=== PATIENT | female | born 2000 | race African-American/Black ===

== ENCOUNTER 2021-08-31 01:40 | Emergency (ER) | payer MEDICAID ==
[~2021-08-31] VITALS: Ht 160 cm; Wt 68.3 kg
[2021-08-31 01:54] VITALS: BP 106/69
[2021-08-31] MEDS ORDERED: IBUPROFEN 600MG TABLET PO ONE (03:30)
== END 2021-08-31 04:47 | disposition home or self-care (01) ==
LOC: ER 01:40
DX: S50.01XA Contusion of right elbow, initial encounter (principal); W22.8XXA Striking against or struck by other objects, initial encounter; Y93.89 Activity, other specified; Y92.013 Bedroom of single-family (private) house as the place of occurrence of the external cause
CPT/HCPCS: 73080; 81025; 99283

== ENCOUNTER 2022-08-10 21:18 | Emergency (ER) | payer MEDICAID ==
[~2022-08-10] VITALS: Ht 160 cm; Wt 66.0 kg
[2022-08-10 23:54] LABS: HEMATOCRIT. 35.5 % (36.0-48.0); HEMOGLOBIN. 11.4 g/dL (12.0-16.0); MEAN CORPUSCULAR VOLUME 87.2 fL (81.0-99.0); MEAN PLATELET VOLUME 7.9 fl (7.4-10.4); PLATELET 376 x1000/uL (130-400); RED BLOOD CELL COUNT 4.08 mill/uL (4.2-5.4); RED CELL DISTRIBUTION WIDTH 14.9 % (11.6-14.6)
[2022-08-11 00:02] LABS: CHLORIDE 105 mEq/L (98-107)
[2022-08-11 01:32] LABS: T4 FREE 1.05 ng/dL (0.76-1.46)
[2022-08-11 02:04] VITALS: BP 118/67
[2022-08-11 05:13] LABS: PLATELET ESTIMATE NORMAL
== END 2022-08-11 02:06 | disposition home or self-care (01) ==
LOC: ER 21:18
DX: R00.2 Palpitations (principal)
CPT/HCPCS: 36415; 71045; 80053; 84439; 84443; 85025; 93005; 99285